=== PATIENT | male | born 1975 | race Caucasian/White ===

== ENCOUNTER 2025-03-02 06:29 | Emergency (ER) | payer BC, SELFPAY ==
[2025-03-02 06:33] VITALS: BP 150/86
[2025-03-02] MEDS: TYLENOL 1000 MG PO (06:53)
--- NOTE | 2025-03-02 07:14 | ED.GENMED ---
History of Present Illness
General
Chief Complaint: Cold/Flu/URI Symptoms
Source: patient
Exam Limitations: none
Time Seen by Provider: 03/02/25 07:00
Nursing documentation reviewed up to this point in time: agreed with
History of Present Illness
History of Present Illness:
50-year-old male with 2 days of fever cough sore throat malaise no nausea or vomiting negative COVID test at home did get a flu shot this year no abdominal pain no dysuria or frequency
Past History
Past History
ED Past Medical History: None
ED Past Surgical History: None
Social History
Personal: Single
Review of Systems
Review of Systems
All Other Systems: Not applicable
Constitutional: Reports fever, fatigue and chills
EENT: Reports sore throat
Respiratory: Reports cough
: Reports no symptoms
Musculoskeletal: Reports muscle stiffness
Skin: Reports no symptoms
Neurological: Reports weakness
Phy Exam
Physical Exam
Physical Exam:
Physical Exam
General: Febrile 50 male looks uncomfortable but not toxic
Neck: Posterior pharynx is clear lips are slightly
Heart: Tachycardic
Lungs: Faint wheeze bilaterally
Abdomen: Nontender
Neuro: alert and oriented. no focal neurological deficits
Skin: no rash
Psychiatric: well kept. interactive and cooperative
Extremities: No cyanosis
Course
Orders/Labs/Results
Orders:
Orders
03/02/25 06:46
COVID-19 Antigen Urgent
Source: Nasal Swab
Influenza A+B Rapid Molecular Urgent
PETROS Source: Nasal Swab
Specimen Description:
03/02/25 06:50
Acetaminophen [Tylenol] 1,000 mg .ROUTE .STK-MED ONE
03/02/25 06:53
Acetaminophen [Tylenol] 1,000 mg PO NOW STA
03/02/25 07:10
Ibuprofen [Motrin] 600 mg PO NOW STA
Ipratropium/Albuterol Sulfate [Duoneb] 3 ml INH R NOW STA
03/02/25 07:11
CR Chest - 2 Views Urgent
Comment:
Reason For Exam: fever cough
03/02/25 07:30
Oseltamivir Phosphate [Tamiflu] 75 mg PO NOW STA
Vital Signs
Initial and Last Documented VS:
Initial Vital Signs
Temp Pulse Resp BP Pulse Ox
100.1 F 105 20 150/86 98
03/02/25 06:33 03/02/25 06:33 03/02/25 06:33 03/02/25 06:33 03/02/25 06:33
Last Documented Vital Signs
Temp Pulse Resp BP Pulse Ox
102.2 F H 105 20 150/86 97
03/02/25 06:50 03/02/25 06:33 03/02/25 06:33 03/02/25 06:33 03/02/25 07:44
MDM/Problems Addressed
Differential Diagnosis Includes:
Viral syndrome influenza bronchitis pneumonia
MDM/Problems Addressed:
Fever cough
*Radiology
Radiology exam reviewed: preliminary read by ED provider
*Pulse Oximetry
SaO2: 98
Oxygen Mode of Delivery: Room air
Patient hypoxic: no
*Critical Care Note
Total Time (30-74mins, 75-104mins- exclusive of procedures): Not Applicable
Update Note
Update Note:
730 update influenza positive
9 AM chest x-ray noted formal report pending no obvious infiltrate to my eye
ED Attending Note
-
Portions of this chart may have been created with voice recognition software.� Occasional wrong word or��sound alike� substitutions may have occurred due to the inherent limitations of voice recognition software.
Discharge Plan
Departure
Patient Disposition: Home (Routine Discharge)
Date of Disposition: 03/02/25
Time of Disposition: 08:48
Patient with high blood pressure during this ER visit?: No
Condition: Good
Covid-19: Negative COVID-19
Discharge Problem:
Influenza
Instructions: Flu in adults - ED (DC)
Prescriptions:
New
oseltamivir [Tamiflu] 75 mg capsule
75 mg PO BID 5 Days Qty: 10 0RF
albuterol sulfate [Ventolin HFA] 90 mcg/actuation HFA aerosol inhaler
2 inh inhalation Q6H PRN (Reason: shortness of breath or wheezing) Qty: 8.5 0RF
ibuprofen 600 mg tablet
600 mg PO Q8H PRN (Reason: fever or pain) Qty: 20 0RF
No Action
levofloxacin 500 MG tablet
500 mg PO DAILY Qty: 9 0RF
Referrals:
Isi Amador DO [Family Provider, Family Practice] - Next open appointment
Interventions
Interventions:
*Risk Screen - Suicide Last Done: 03/02/25 06:33
*General Assessment Last Done: 03/02/25 06:33
*Neglect/Abuse Screening Last Done: 03/02/25 06:33
*ED- Fall Risk Assessment Last Done: 03/02/25 06:33
*ED COVID-19 Vaccine History Last Done: 03/02/25 06:33
*ED Influenza Vaccine History Last Done: 03/02/25 06:33
ED- Pulmonary Assessment Last Done: 03/02/25 07:44
Discharge Date and Time
Print Language: BOLIVIAN
[2025-03-02 07:27] LABS: COVID-19 Antigen Negative (Negative)
[2025-03-02] MEDS: TAMIFLU 75 MG PO (07:39)
[2025-03-02] MEDS: DUONEB 3 ML INH (07:39)
[2025-03-02] MEDS: MOTRIN 600 MG PO (07:39)
== END 2025-03-02 09:10 | disposition home or self-care (01) ==
LOC: EMR 06:29
PROVIDERS: Student in an Organized Health Care Education/Training Program; EMERGENCY PHYSICIAN Emergency Medicine; FAMILY PHYSICIAN Family Medicine
DX: J10.1 Influenza due to other identified influenza virus with other respiratory manifestations (principal); Z11.52 Encounter for screening for COVID-19
CPT/HCPCS: 99284; 94640; 71046; 87502; 87811